=== PATIENT | male | born 1970 | race Caucasian/White ===

== ENCOUNTER 2023-03-05 15:37 | Emergency (ER) | payer OTHER ==
[2023-03-05 16:29] LABS: #Eosinphils 0.1 10x3/uL (0.0-0.5); #Monocytes 0.8 10x3/uL (0.0-1.1); #Neutrophils 5.6 10x3/uL (1.5-8.4); %Basophils 0.4 % (0.0-2.0); %Lymphocytes 28.9 % (18.0-47.0); %Monocytes 8.2 % (0.0-10.0); %Neutrophils 61.1 % (40.0-75.0); Hematocrit 53.9 % (38.8-50.0); Hemoglobin 18.3 g/dL (13.5-17.5); Mean Corpuscular Hemoglobin 31.4 pg (27.0-33.0); Mean Corpuscular Volume 92.5 fl (81.2-95.1); Mean Platelet Volume 11.3 fl (7.4-10.4); Platelet Count 200 10x3/uL (150-450); RBC Distribution Width 13.1 % (11.5-14.5); Red Blood Cell (RBC) Count 5.83 10x6/uL (4.32-5.72); White Blood Cell (WBC) Count 9.1 10x3/uL (3.5-10.5)
[2023-03-05 16:42] LABS: Anion Gap 16 mmol/L (10-20); BUN (Urea Nitrogen) 12 mg/dL (8.4-25.7); Calc. Creatinine Clearance 0 mL/min (70-130); Calcium 9.5 mg/dL (7.8-10.44); Carbon Dioxide 21 mmol/L (22-29); Chloride 109 mmol/L (98-107); Estimated GFR 97; Glucose 111 mg/dL (70-105); Potassium 4.1 mmol/L (3.5-5.1); Sodium 142 mmol/L (136-145)
[2023-03-05] MEDS ORDERED: Ondansetron PF 4 MG/2 ML Vial ONE (16:43)
[2023-03-05] MEDS ORDERED: Acetaminophen 500 MG TAB ONE (16:43)
[2023-03-05] MEDS ORDERED: Ketorolac Tromethamine 30 MG/ML VIAL ONE (16:43)
[2023-03-05 16:50] LABS: Troponin I Less than 0.010 ng/mL (< 0.028)
[2023-03-05] MEDS ORDERED: Fluconazole 100 MG TAB PO SCH (18:30)
== END 2023-03-05 18:19 | disposition home or self-care (01) ==
LOC: CSHERS 15:37
DX: U07.1 COVID-19 (principal); B37.0 Candidal stomatitis; F17.210 Nicotine dependence, cigarettes, uncomplicated
CPT/HCPCS: 36415; 71045; 80048; 84484; 85025; 96374; 96375; J1885; J2405

== ENCOUNTER 2024-07-13 13:48 | Emergency (ER) | payer OTHER ==
[~2024-07-13 13:48] MED LIST: Iopamidol 370 76% 100 ML VIAL ONE
[2024-07-13 15:38] LABS: #Basophils 0.04 10x3/uL (0.0-0.2); #Eosinophils Less than 0.03 10x3/uL (0.0-0.5); #Monocytes 0.29 10x3/uL (0.0-1.1); #Neutrophils 10.54 10x3/uL (1.5-8.4); %Basophils 0.3 % (0.0-2.0); %Eosinophils 0.2 % (0.0-6.0); %Lymphocytes 9.9 % (18.0-47.0); %Monocytes 2.4 % (0.0-10.0); %Neutrophils 86.5 % (40.0-75.0); Hematocrit 47.6 % (38.8-50.0); Mean Corpuscular HGB CONC 33.6 g/dL (32.0-36.0); Mean Corpuscular Hemoglobin 31.1 pg (27.0-33.0); Mean Corpuscular Volume 92.6 fL (81.2-95.1); Mean Platelet Volume 10.8 fL (7.4-10.4); Platelet Count 281 10x3/uL (150-450); RBC Distribution Width 12.1 % (11.5-14.5); Red Blood Cell (RBC) Count 5.14 10x6/uL (4.32-5.72); White Blood Cell (WBC) Count 12.19 10x3/uL (3.5-10.5)
[2024-07-13 15:55] LABS: ALT (SGPT) 32 U/L (Less than 45); AST (SGOT) 27 U/L (11-34); Albumin 4.8 g/dL (3.1-4.5); Alkaline Phosphatase 73 U/L (40-110); Anion Gap 14 mmol/L (10-20); BUN (Urea Nitrogen) 9 mg/dL (8.4-25.7); Bilirubin, Total 0.5 mg/dL (0.3-1.2); Calc. Creatinine Clearance 0 mL/min (70-130); Calcium 10.2 mg/dL (7.8-10.44); Carbon Dioxide 22 mmol/L (22-29); Chloride 108 mmol/L (98-107); Estimated GFR 50; Glucose 125 mg/dL (70-105); Potassium 4.8 mmol/L (3.5-5.1); Protein, Total 7.8 g/dL (6.0-8.3); Sodium 139 mmol/L (136-145)
[2024-07-13 16:49] LABS: INR-International Normal Ratio 0.9; PTT 27.1 sec (22.0-33.0); Prothrombin Time 10.2 sec (9.5-12.1)
== END 2024-07-13 18:06 | disposition home or self-care (01) ==
LOC: CSHERS 13:48
DX: R19.7 Diarrhea, unspecified (principal); E27.9 Disorder of adrenal gland, unspecified; F17.210 Nicotine dependence, cigarettes, uncomplicated
CPT/HCPCS: 36415; 74177; 80053; 83690; 85025; 85610; 85730; 86850; 86900; 86901; Q9967

== ENCOUNTER 2025-02-24 12:59 | Outpatient (CLI) | payer OTHER | END 2025-02-24 13:00 | disposition home or self-care (01) | LOC: CSHULT 12:59 | PROVIDERS: ATTEND Family Medicine | DX: I73.9 Peripheral vascular disease, unspecified (principal); R93.6 Abnormal findings on diagnostic imaging of limbs | CPT/HCPCS: 93923 ==

== ENCOUNTER 2025-03-19 11:22 | Emergency (ER) | payer OTHER ==
[2025-03-19 11:46] LABS: Hematocrit 47.4 % (38.8-50.0); Hemoglobin 16.0 g/dL (13.5-17.5); Mean Corpuscular Hemoglobin 31.3 pg (27.0-33.0); Mean Corpuscular Volume 92.8 fL (81.2-95.1); Platelet Count 200 10x3/uL (150-450); Red Blood Cell (RBC) Count 5.11 10x6/uL (4.32-5.72); White Blood Cell (WBC) Count 10.44 10x3/uL (3.5-10.5)
[2025-03-19 12:08] LABS: ALT (SGPT) 31 U/L (Less than 45); AST (SGOT) 25 U/L (11-34); Albumin 4.5 g/dL (3.1-4.5); Alkaline Phosphatase 84 U/L (40-110); Anion Gap 14 mmol/L (10-20); BUN (Urea Nitrogen) 11 mg/dL (8.4-25.7); Bilirubin, Total 0.7 mg/dL (0.3-1.2); Calc. Creatinine Clearance 0 mL/min (70-130); Calcium 9.7 mg/dL (7.8-10.44); Carbon Dioxide 25 mmol/L (22-29); Chloride 109 mmol/L (98-107); Globulin 2.3 g/dL (2.4-3.5); Glucose 101 mg/dL (70-105); Potassium 4.3 mmol/L (3.5-5.1); Sodium 144 mmol/L (136-145)
[2025-03-19 12:18] LABS: Troponin I Less than 0.010 ng/mL (< 0.028)
[2025-03-19 12:49] LABS: Platelet Adequacy Comment Appears Adequate; RBC Morphology Within Normal Limits
[2025-03-19 12:50] LABS: MDiff Complete? YES
[2025-03-19 15:07] LABS: Troponin I 0.010 ng/mL (< 0.028)
== END 2025-03-19 17:52 | disposition home or self-care (01) ==
LOC: CSHERS 11:22
DX: R07.9 Chest pain, unspecified (principal); I10 Essential (primary) hypertension; R91.1 Solitary pulmonary nodule; I25.10 Atherosclerotic heart disease of native coronary artery without angina pectoris; E27.8 Other specified disorders of adrenal gland; F17.210 Nicotine dependence, cigarettes, uncomplicated
CPT/HCPCS: 36415; 71045; 71275; 74174; 80053; 84484; 85025; 93005; 94760; Q9967